=== PATIENT | female | born 1995 | race Caucasian/White ===

== ENCOUNTER 2017-04-05 00:05 | Emergency (ER) | payer OTHER ==
[~2017-04-05] VITALS: Ht 170.2 cm; Wt 110.0 kg
[~2017-04-05 00:05] MED LIST: BENA5TAB2 PO; CIPR500T4 PO; GEMF600T60 PO; GLIM4TAB PO; LORA0.5T PO; METF1000 PO; NAPR-688 PO; ONDA4TAB11 PO
[2017-04-05 00:11] VITALS: Ht 170.2 cm; Wt 110.0 kg
[2017-04-05] MEDS ORDERED: D-ME473S2 PO (01:14)
[2017-04-05] MEDS ORDERED: BENZ100C70 PO (01:14)
[2017-04-05] MEDS ORDERED: ALBU8.5H3 INH (01:14)
--- NOTE | 2017-04-05 01:30 | ERD ---
ER Documentation Chief Complaint Chief Complaint cough x 2 days, colds HPI 21-year-old female complaining of dry cough. Patient had tactile fevers yesterday. Has a sore throat and runny nose. Took Tylenol yesterday with no alleviation of symptoms. Denies hemoptysis. Denies pleuritic chest pain. Denies shortness of breath. Has no history of pneumonia or asthma in the past. ROS All systems reviewed and are negative except as per history of present illness. Medications Home Meds Active Scripts Albuterol Sulfate* (Proair HFA*) 8.5 Gm Hfa.aer.ad, 2 PUFF INH Q4, #1 INHALER Prov:YASSINE LYON PA-C 04/05/17 Dextromethorphan Hb-Promethazine Hcl* (Promethazine DM* Syrup) 473 Ml Syrup, 5 ML PO Q6 Y for COUGH, #100 ML Prov:YASSINE LYON PA-C 04/05/17 Benzonatate* (Tessalon Perle*) 100 Mg Capsule, 100 MG PO Q8H Y for COUGH, #30 CAP Prov:YASSINE LYON PA-C 04/05/17 Ondansetron (Zofran Odt) 4 Mg Tab.rapdis, 4 MG PO Q6, #10 Prov:CASANDRA LAU DO 03/29/16 Naproxen* (Naproxen*) 500 Mg Tablet, 500 MG PO BID for PAIN, #20 TAB Prov:CASANDRA LAU DO 03/29/16 Ciprofloxacin Hcl* (Ciprofloxacin Hcl*) 500 Mg Tablet, 500 MG PO BID for 3 Days , TAB Prov:CASANDRA LAU DO 03/29/16 Reported Medications Glimepiride* (Glimepiride*) 4 Mg Tablet, 4 MG PO WITH BREAKFAST, TAB 03/29/16 Gemfibrozil* (Gemfibrozil*) 600 Mg Tablet, 600 MG PO TID, TAB 03/29/16 Lorazepam* (Lorazepam*) 0.5 Mg Tablet, 0.5 MG PO HS Y for ANXIETY, TAB 03/29/16 Metformin Hcl* (Metformin Hcl*) 1,000 Mg Tablet, 1000 MG PO BID 06/22/15 Benazepril Hcl* (Benazepril Hcl*) 5 Mg Tablet, 5 MG PO DAILY 06/22/15 Allergies Allergies: Coded Allergies: No Known Drug Allergy (Verified Allergy, Unknown, 01/22/16) PMhx/Soc History of Surgery: Yes (hip surgery L hip with 2 pins) Anesthesia Reaction: No Hx Neurological Disorder: No Hx Respiratory Disorders: No Hx Cardiac Disorders: No Hx Psychiatric Problems: No Hx Miscellaneous Medical Probl: Yes (dm2) Hx Alcohol Use: No Hx Substance Use: No Hx Tobacco Use: No Smoking Status: Never smoker Physical Exam Vitals Vital Signs Date Time Temp Pulse Resp B/P Pulse Ox O2 Delivery O2 Flow Rate FiO2 04/05/17 00:11 98.8 114 20 144/80 100 Physical Exam GENERAL: The patient is well-appearing, well-nourished, in no acute distress HEENT: Atraumatic. Conjunctivae are pink. Pupils equal, round, and reactive to light. There is no scleral icterus. Tympanic membranes clear bilaterally. Oropharynx clear. No nystagmus or photophobia. NECK: C-spine is soft and supple. There is no meningismus. There is no cervical lymphadenopathy. CHEST: Clear to auscultation bilaterally. There are no rales, wheezes or rhonchi. HEART: Regular rate and rhythm. No murmurs, clicks, rubs or gallops. No S3 or S4. Procedures/MDM MDM: 21-year-old female complaining of cough. I have low suspicion for pneumonia. Patient's breath sounds is within normal limits and vital signs are stable. I have low suspicion for bacterial HEENT infection. Patient's exam is non-concerning. Patient likely has viral cough and will be given medication for symptoms. I have low suspicion for meningitis or sepsis. Patient will be discharged with strict ER precautions and recommended follow-up with primary care within 1-2 days for close evaluation. All questions answered at discharge. Departure Diagnosis: Primary Impression: Cough Patient Instructions: Cough, Chronic, Uncertain Cause, (Adult) Referrals: [facility] Additional Instructions: FOLLOW UP WITH YOUR PRIMARY CARE PHYSICIAN TOMORROW.Return to this facility if you are not improving as expected. YASSINE LYON PA-C Apr 05, 2017 01:30
== END 2017-04-05 01:50 | disposition home or self-care (01) ==
LOC: FTE 00:05
DX: R05 Cough (principal); E11.9 Type 2 diabetes mellitus without complications; Z79.84 Long term (current) use of oral hypoglycemic drugs
CPT/HCPCS: 99284

== ENCOUNTER 2018-11-12 21:42 | Emergency (ER) | payer OTHER ==
[~2018-11-12] VITALS: Ht 167.6 cm; Wt 109.0 kg
[~2018-11-12 21:42] MED LIST changes: +ALBU8.5H8 INH; -BENA5TAB2 PO; +BENA5TAB33 PO; +BENZ-6 PO; +D-ME473S2 PO; -GEMF600T60 PO; +GEMF600T8 PO; -METF1000 PO; +METF100010 PO
[2018-11-12 21:44] VITALS: BP 157/92; PULSE 100; RESP 20; Ht 167.6 cm; Wt 109.0 kg
[2018-11-12] MEDS ORDERED: IBUP-1542 PO (22:31)
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
== END 2018-11-12 23:35 | disposition home or self-care (01) ==
LOC: FTE 21:42
DX: S99.921A Unspecified injury of right foot, initial encounter (principal); E11.9 Type 2 diabetes mellitus without complications; V09.29XA Pedestrian injured in traffic accident involving other motor vehicles, initial encounter; Z79.84 Long term (current) use of oral hypoglycemic drugs
CPT/HCPCS: 73630; Z7502

== ENCOUNTER 2019-01-06 22:45 | Emergency (ER) | payer OTHER ==
[~2019-01-06] VITALS: Ht 170.2 cm; Wt 108.3 kg
[~2019-01-06 22:45] MED LIST changes: +IBUP-1542 PO; +IBUP800T48 PO
[2019-01-06 23:09] VITALS: Ht 170.2 cm; Wt 108.3 kg
[2019-01-07] MEDS ORDERED: HYDROCODONE/APAP (5/325) TAB PO ONE (01:00)
[2019-01-07 02:44] VITALS: BP 132/78; PULSE 94; RESP 17
== END 2019-01-07 02:44 | disposition home or self-care (01) ==
LOC: FTE 22:45
DX: S99.911A Unspecified injury of right ankle, initial encounter (principal); E11.9 Type 2 diabetes mellitus without complications; X50.1XXA Overexertion from prolonged static or awkward postures, initial encounter; Y92.9 Unspecified place or not applicable; Z79.84 Long term (current) use of oral hypoglycemic drugs
CPT/HCPCS: 29515; 73610; Z7502; Z7610